=== PATIENT | female | born 1970 | race Caucasian/White ===

== ENCOUNTER → 2017-01-19 | Outpatient (CLI) | payer BC ==
[~2017-01-19] MED LIST: IUD'IUD VAGRING; NITR1CAP33 PO; OXYC-57 PO; SERT100T PO; SERT50TA PO
== END | disposition home or self-care (01) ==
LOC: C.PAPS 13:48
PROVIDERS: ATTEND Obstetrics & Gynecology
DX: Z01.419 Encounter for gynecological examination (general) (routine) without abnormal findings (principal)

== ENCOUNTER → 2017-01-19 | Outpatient (CLI) | payer BC ==
--- NOTE | 2017-01-19 13:35 | DIAGNOSTIC IMAGING REPORT ---
KUB CLINICAL HISTORY: N20.0 [id number] nephrocalcinosis COMPARISON STUDY: 01/30/2016 FINDINGS: 5 mm calcification immediately medial of the left renal shadow. A left ureteral pelvic junction calcification is not excluded. Bowel pattern is nonobstructive. There is no intrauterine device present within the soft tissue pelvis. IMPRESSION: Potential proximal left ureteral calculus measuring 5 mm. Electronically signed by: Toro Rowan M.D. 01/19/2017 1:34 PM Dictated Date/Time: 01/19/2017 1:33 PM
== END | disposition home or self-care (01) ==
LOC: C.RAD 13:14
PROVIDERS: ATTEND Urology
DX: N20.0 Calculus of kidney (principal)

== ENCOUNTER → 2017-03-11 | Outpatient (CLI) | payer BC ==
--- NOTE | 2017-03-11 15:02 | DIAGNOSTIC IMAGING REPORT ---
KUB HISTORY: 46 years-old Female N20.0 [id number] COMPARISON: 01/19/2017 TECHNIQUE: KUB radiograph FINDINGS: There is redemonstration of a 7 x 5 mm calcification within the region of the interpolar left kidney suggesting calculus. No calculi are seen along the course of either ureter. Bowel gas pattern is nonobstructive. There is moderate volume of formed stool within the colon. Intrauterine device is noted. No fracture. There are 6 non-rib lumbar-type vertebral segments incidentally noted. IMPRESSION: 1. 7 x 5 mm calcification of the left upper abdomen suggests renal calculus without evidence of ureteral calculi. 2. Nonobstructive bowel gas pattern. The above report was generated using voice recognition software. It may contain grammatical, syntax or spelling errors. Electronically signed by: Domenico Fall M.D. 03/11/2017 3:01 PM Dictated Date/Time: 03/11/2017 2:59 PM
== END | disposition home or self-care (01) ==
LOC: C.RAD 14:43
PROVIDERS: ATTEND Nurse Practitioner Family
DX: N20.0 Calculus of kidney (principal)

== ENCOUNTER → 2017-04-22 | Outpatient (CLI) | payer BC ==
[~2017-04-22] MED LIST changes: -SERT50TA PO
--- NOTE | 2017-04-22 11:36 | DIAGNOSTIC IMAGING REPORT ---
CHEST 2 VIEWS ROUTINE CLINICAL HISTORY: Nephrolithiasis. Preoperative evaluation. COMPARISON STUDY: Chest radiograph August 04, 2013. FINDINGS: Incidental note is made of an anterior cervical spine fusion. There is no pneumothorax or pleural effusion. Pulmonary vascularity is normal. No consolidation is identified. Cardiomediastinal silhouette is normal. Right apical opacity is unchanged and likely reflects scarring. IMPRESSION: No acute cardiopulmonary findings. Electronically signed by: Parminder Florence M.D. 04/22/2017 11:35 AM Dictated Date/Time: 04/22/2017 11:31 AM
[2017-04-22 12:13] LABS: BASO % 0.5 %; BASO ABS # 0.04 K/uL (0-0.2); COMPLETE YES; EOS % 7.6 %; HEMATOCRIT 39.2 % (37-47); IG% 1.2 %; LYMPH ABS # 1.76 K/uL (1.2-3.4); MEAN CELL VOLUME 89.9 fL (80-100); MEAN CORPUSCULAR HEMOGLOBIN 29.8 pg (25-34); MEAN CORPUSCULAR HGB CONC 33.2 g/dl (32-36); MEAN PLATELET VOLUME 10.9 fL (7.4-10.4); MONO % 8.9 %; NEUT % 57.8 %; PLATELET COUNT 439 K/uL (130-400); RED BLOOD COUNT 4.36 M/uL (4.2-5.4); WHITE BLOOD COUNT 7.34 K/uL (4.8-10.8)
[2017-04-22 12:27] LABS: BLOOD UREA NITROGEN 11 mg/dl (7-18); BUN/CREATININE RATIO 12.1 (10-20); CALCIUM 9.3 mg/dl (8.5-10.1); CARBON DIOXIDE 27 mmol/L (21-32); CHLORIDE 104 mmol/L (98-107); CREATININE 0.91 mg/dl (0.60-1.20); GLUCOSE 92 mg/dl (70-99); POTASSIUM 4.1 mmol/L (3.5-5.1); SODIUM 137 mmol/L (136-145)
== END | disposition home or self-care (01) ==
LOC: C.RAD 10:50
PROVIDERS: ATTEND Nurse Practitioner Family
DX: N20.0 Calculus of kidney (principal)

== ENCOUNTER → 2017-04-27 | Outpatient (CLI) | payer BC | END | disposition home or self-care (01) | LOC: C.LAB 17:19 | PROVIDERS: ATTEND Nurse Practitioner Family | DX: N39.0 Urinary tract infection, site not specified (principal) ==

== ENCOUNTER → 2017-05-06 | Outpatient (CLI) | payer BC ==
--- NOTE | 2017-05-06 16:30 | DIAGNOSTIC IMAGING REPORT ---
KUB HISTORY: NEPHROLITHIASIS COMPARISON: KUB 03/11/2017. FINDINGS: The bowel gas pattern is unremarkable. There are no dilated loops of small bowel to suggest an obstruction. No change in the 8 mm stone within the upper pole the left kidney. No right renal calculi. No ureteral or bladder calculi. An intrauterine device is unchanged in position. No pneumoperitoneum or pneumatosis. IMPRESSION: No change in the 8 mm stone within the left kidney. Electronically signed by: Maco Harris M.D. 05/06/2017 4:28 PM Dictated Date/Time: 05/06/2017 4:27 PM
== END | disposition home or self-care (01) ==
LOC: C.RAD 15:36
PROVIDERS: ATTEND Nurse Practitioner Family
DX: N20.0 Calculus of kidney (principal)

== ENCOUNTER → 2017-05-07 | Day surgery (SDC) | payer BC ==
[2017-04-07 11:07] VITALS: Ht 154.9 cm; Wt 68.2 kg
[~2017-05-07] VITALS: Ht 154.9 cm; Wt 68.2 kg
[~2017-05-07] MED LIST changes: +ATROPINE SULFATE 0.1 MG/ML 5ML SYR IV PRN; +CEFAZOLIN SOD 1 GM VIAL ONE; +DEXAMETHASONE SOD INJ 4 MG/ML VIAL ONE; +DiphenhydrAMINE HCL 50 MG/ML VIAL ONE; +EpHEDrine SULFATE INJ 50 MG/ML AMP IV PRN; +FENTANYL CITRATE INJ 50 MCG/1 ML 2 ML VIAL IV PRN; +FENTANYL CITRATE INJ 50 MCG/1 ML 2 ML VIAL ONE; +LIDOCAINE HCL 2% 2 ML VIAL (20MG/ML) ONE; +ONDANSETRON INJ 2 MG/ML 2 ML VIAL IV PRN; +ONDANSETRON INJ 2 MG/ML 2 ML VIAL ONE; +OXYCODONE/ACETAMINOPHEN 5-325 TAB PO PRN; +PROPOFOL IV EMULSION 10 MG/ML 20 ML VIAL IV ONE; +SODIUM CHLORIDE 0.9% INJ 10 ML VIAL ONE
[2017-05-07] MEDS: CIPROFLOXACIN 400MG / D5W IV SCH ×2 (13:04→13:19)
[2017-05-07] MEDS: LACTATED RINGER'S 1000ML 1,000 ML IV SCH ×2 (13:04→14:41)
--- NOTE | 2017-05-07 13:27 | History & Physical Bridge - SC ---
H&P Re-Evaluation Bridge Note: I have examined the patient, reviewed the History & Physical and in the interval since the performance of the History & Physical I have noted the following changes of clinical significance: No changes noted
--- NOTE | 2017-05-07 14:17 | [facility] Post Operative Brief Note ---
Immediate Operative Summary Operative Date May 07, 2017. Pre-Operative Diagnosis Left Renal Stone Post-Operative Diagnosis same Procedure(s) Performed Left Extracorporeal Shock Wave Lithotripsy Surgeon Dr. Jocelynn Gutierrez Intake Worker Surgeon(s) 0 Estimated Blood Loss 0 Findings stone appeared to fragment quickly ,Stopped after 1500 shocks as could not locate any further fragments Specimens none
--- NOTE | 2017-05-07 14:49 | Discharge Instructions-SurgCtr ---
Discharge Instructions Date of Service May 07, 2017. Visit Reason for Visit: Stones Discharge Discharge Diagnosis / Problem: post op l eswl Discharge Goals Goal(s): Decrease discomfort, Increase independence, Improve disease control Activity Recommendations Activity Limitations: per Instructions/Follow-up section (no driving on narcotics , strain urine) Anesthesia . Post Anesthesia Instructions: If you have had General Anesthesia or IV Sedation: * Do not drive today. * Resume driving when surgeon permits. * Do not make important decisions or sign legal documents today. * Call surgeon for: 1. Temperature elevations greater than 101 degrees F. 2. Uncontrollable pain. 3. Excessive bleeding. 4. Persistent nausea and vomiting. 5. Medication intolerance (nausea, vomiting or rash). * For nausea and vomiting use only clear liquids such as: tea, soda, bouillon until nausea subsides, then gradually increase diet as tolerated. * If you have any concerns or questions, call your surgeon's office. If physician is unavailable and it is an emergency, call 911 or go to the nearest emergency room. . Diet Recommendations Home Diet: resume previous diet Procedures Procedures Performed: Left Extracorporeal Shock Wave Lithotripsy Pending Studies Studies pending at discharge: no Medical Emergencies . Who to Call and When: Medical Emergencies: If at any time you feel your situation is an emergency, please call 911 immediately. . Non-Emergent Contact Non-Emergency issues call your: Urologist Call Non-Emergent contact if: temperature is above 101, your pain is not controlled . . "Provider Documentation" section prepared by Modesto Gutierrez. .
--- NOTE | 2017-05-07 14:50 | Anesthesia Progress Nt - [facility] ---
Anesthesia Post Op Note Date & Time May 07, 2017 at 14:50 Vital Signs Pain Intensity: 0 Vital Signs Past 12 Hours Date Time Temp Pulse Resp B/P (MAP) Pulse Ox O2 Delivery O2 Flow Rate FiO2 05/07/17 14:21 36.3 74 20 142/92 98 Room Air 05/07/17 12:04 36.6 73 18 130/77 (94) 98 Room Air Notes Mental Status: alert / awake / arousable, participated in evaluation Pt Amnestic to Procedure: Yes Nausea / Vomiting: adequately controlled Pain: adequately controlled Airway Patency, RR, SpO2: stable & adequate BP & HR: stable & adequate Hydration State: stable & adequate Anesthetic Complications: no major complications apparent
[2017-05-07 15:30] VITALS: TEMP 36.9
[2017-05-07 15:38] VITALS: BP 129/77; PULSE 80; O2SAT 97
--- NOTE | 2017-05-07 16:16 | OPERATIVE REPORT ---
DATE OF OPERATION: 05/07/2017 PREOPERATIVE DIAGNOSIS: Left ureteropelvic junction stone. POSTOPERATIVE DIAGNOSIS: Same. SURGEON: Dr. Gutierrez. ANESTHESIA: General. PROCEDURE PERFORMED: Left ESWL. DESCRIPTION OF THE PROCEDURE: The patient was taken to the operating room. She had been given preoperative antibiotics but had reactions so the Cipro was stopped. She was given Kefzol in the operating room. She had Venodyne stockings placed prior to her anesthesia, she was given general anesthesia and then the stone was localized from behind. She was given 1500 shocks, the stone completely disappeared. We lowered the balloon head to try to see if the stone had spread out; I could not find any fragments anywhere else to focus on so that we stopped procedure after 1500 shocks. The patient was then transferred back to the recovery room in stable condition. I attest to the content of the Intraoperative Record and any orders documented therein. Any exception s are noted below.
== END | disposition home or self-care (01) ==
LOC: X.SURG 11:42
PROVIDERS: ATTEND Urology
DX: N20.1 Calculus of ureter (principal); Z87.440 Personal history of urinary (tract) infections; F41.9 Anxiety disorder, unspecified; F32.9 Major depressive disorder, single episode, unspecified; Z87.891 Personal history of nicotine dependence; Z79.899 Other long term (current) drug therapy

== ENCOUNTER → 2017-05-12 | Outpatient (CLI) | payer BC ==
[~2017-05-12] MED LIST changes: -ATROPINE SULFATE 0.1 MG/ML 5ML SYR IV PRN; -CEFAZOLIN SOD 1 GM VIAL ONE; -DEXAMETHASONE SOD INJ 4 MG/ML VIAL ONE; -DiphenhydrAMINE HCL 50 MG/ML VIAL ONE; -EpHEDrine SULFATE INJ 50 MG/ML AMP IV PRN; -FENTANYL CITRATE INJ 50 MCG/1 ML 2 ML VIAL IV PRN; -FENTANYL CITRATE INJ 50 MCG/1 ML 2 ML VIAL ONE; -LIDOCAINE HCL 2% 2 ML VIAL (20MG/ML) ONE; -ONDANSETRON INJ 2 MG/ML 2 ML VIAL IV PRN; -ONDANSETRON INJ 2 MG/ML 2 ML VIAL ONE; -OXYCODONE/ACETAMINOPHEN 5-325 TAB PO PRN; -PROPOFOL IV EMULSION 10 MG/ML 20 ML VIAL IV ONE; -SODIUM CHLORIDE 0.9% INJ 10 ML VIAL ONE
== END | disposition home or self-care (01) ==
LOC: C.LAB 17:57
PROVIDERS: ATTEND Nurse Practitioner Adult Health
DX: N20.0 Calculus of kidney (principal); N39.0 Urinary tract infection, site not specified

== ENCOUNTER → 2017-05-19 | Outpatient (CLI) | payer BC ==
--- NOTE | 2017-05-19 18:00 | DIAGNOSTIC IMAGING REPORT ---
KUB CLINICAL HISTORY: Nephrolithiasis status post lithotripsy. FINDINGS: 2 AP supine abdominal radiographs are compared to study dated 05/06/2017 and correlated with abdominal CT dated 10/18/2014. There is a nonobstructed abdominal bowel gas pattern noting moderate colonic fecal retention. There is no radiographic evidence of nephrolithiasis on today's examination. The left proximal ureteral stone seen on 05/06/2017 has resolved. An intrauterine device is noted in the pelvis. The bony structures appear intact. IMPRESSION: There is no radiographic evidence of nephrolithiasis on today's examination. The left proximal ureteral stone seen on 05/06/2017 has resolved. Electronically signed by: Rsata Ovalle M.D. 05/19/2017 5:59 PM Dictated Date/Time: 05/19/2017 5:57 PM
== END | disposition home or self-care (01) ==
LOC: C.RAD 17:41
PROVIDERS: ATTEND Nurse Practitioner Family
DX: N20.0 Calculus of kidney (principal)

== ENCOUNTER → 2017-05-20 | Outpatient (CLI) | payer BC | END | disposition home or self-care (01) | LOC: C.LABSPEC 10:40 | PROVIDERS: ATTEND Nurse Practitioner Family | DX: N20.0 Calculus of kidney (principal) ==

== ENCOUNTER → 2017-07-16 | Outpatient (CLI) | payer BC ==
--- NOTE | 2017-07-16 09:27 | DIAGNOSTIC IMAGING REPORT ---
FUSION CT SINUSES W/O HISTORY: 46 years-old Female J32.9 Chronic sinusitis COMPARISON: Brain MRI 07/01/2017 TECHNIQUE: Multiple axial CT images of the paranasal sinuses were obtained without the use of IV contrast. Built In images were also submitted. A dose lowering technique was used consistent with the principals of LANCE. FINDINGS: Mastoid air cells and middle ear cavities are clear. There is mild mucoperiosteal thickening of the left greater than right maxillary sinuses. The frontal and sphenoid sinuses are clear. There is only minimal mucosal thickening involving a few anterior ethmoid air cells. No vijaya bullosa. Minimal rightward bowing and spurring of the nasal septum. The mj stephanie appears normal. Mild mucosal thickening is noted involving the ostiomeatal units, left greater than right without occlusion. Frontoethmoidal and sphenoethmoidal recesses are clear. Areas of minimal mucosal thickening also seen within the nasal turbinates. Probable bone island or osteoma of the left maxillary bone, 6 mm. No acute facial bone fracture or dislocation. Imaged soft tissues are unremarkable. Orbits appear symmetric. The imaged intracranial structures demonstrate no acute abnormality. IMPRESSION: 1. Only mild paranasal sinus disease as described above including mild mucosal thickening of the bilateral maxillary ostiomeatal units, left greater then right. 2. Minimal rightward deviation and spurring of the nasal septum. The above report was generated using voice recognition software. It may contain grammatical, syntax or spelling errors. Electronically signed by: Domenico Fall M.D. 07/16/2017 9:25 AM Dictated Date/Time: 07/16/2017 9:18 AM
== END | disposition home or self-care (01) ==
LOC: C.CTS 08:51
PROVIDERS: ATTEND Physician Assistant
DX: J32.9 Chronic sinusitis, unspecified (principal)

== ENCOUNTER → 2017-07-21 | Outpatient (CLI) | payer BC ==
[2017-07-21 10:59] LABS: THYROID STIMULATING HORMONE 1.32 uIu/ml (0.300-4.500)
== END | disposition home or self-care (01) ==
LOC: C.LAB1850 09:08
PROVIDERS: ATTEND Internal Medicine
DX: Z13.220 Encounter for screening for lipoid disorders (principal); F41.9 Anxiety disorder, unspecified

== ENCOUNTER → 2017-10-14 | Outpatient (CLI) | payer BC ==
[2017-10-14 14:39] LABS: BASO % 0.2 %; BASO ABS # 0.02 K/uL (0-0.2); EOS % 2.4 %; EOS ABS # 0.24 K/uL (0-0.5); HEMATOCRIT 39.2 % (37-47); HEMOGLOBIN 13.2 g/dL (12.0-16.0); IG# 0.06 K/uL (0.00-0.02); LYMPH % 24.7 %; LYMPH ABS # 2.42 K/uL (1.2-3.4); MEAN CELL VOLUME 88.7 fL (80-100); MEAN CORPUSCULAR HEMOGLOBIN 29.9 pg (25-34); MEAN CORPUSCULAR HGB CONC 33.7 g/dl (32-36); MEAN PLATELET VOLUME 10.4 fL (7.4-10.4); MONO % 6.7 %; MONO ABS # 0.66 K/uL (0.11-0.59); NEUT % 65.4 %; PLATELET COUNT 381 K/uL (130-400); RED CELL DISTRIBUTION WIDTH CV 13.5 % (11.5-14.5); RED CELL DISTRIBUTION WIDTH SD 44.1 fL (36.4-46.3)
[2017-10-14 15:26] LABS: ALBUMIN 3.6 gm/dl (3.4-5.0); ALT/SGPT 36 U/L (12-78); BLOOD UREA NITROGEN 12 mg/dl (7-18); CALCIUM 9.3 mg/dl (8.5-10.1); CARBON DIOXIDE 28 mmol/L (21-32); CREATININE 0.72 mg/dl (0.60-1.20); GLUCOSE 85 mg/dl (70-99); POTASSIUM 3.8 mmol/L (3.5-5.1); SODIUM 138 mmol/L (136-145)
[2017-10-14 15:37] LABS: ALKALINE PHOSPHATASE 120 U/L (45-117); AST/SGOT 20 U/L (15-37); TOTAL PROTEIN 7.1 gm/dl (6.4-8.2)
== END | disposition home or self-care (01) ==
LOC: C.LAB1850 13:47
PROVIDERS: ATTEND Internal Medicine
DX: R00.2 Palpitations (principal)

== ENCOUNTER → 2017-11-16 | Outpatient (CLI) | payer BC ==
[~2017-11-16] MED LIST changes: -NITR1CAP33 PO; -OXYC-57 PO
--- NOTE | 2017-11-17 07:51 | MAMMOGRAPHY REPORT ---
BILATERAL DIGITAL SCREENING MAMMOGRAM TOMOSYNTHESIS WITH CAD: 11/16/2017 CLINICAL HISTORY: Routine screening. Patient has no complaints. TECHNIQUE: Breast tomosynthesis in addition to standard 2D mammography was performed. Current study was also evaluated with a Computer Aided Detection (CAD) system. COMPARISON: Comparison is made to exams dated: 03/27/2016 mammogram, 08/09/2014 mammogram, 03/17/2013 ma mmogram, 03/16/2012 mammogram, 01/29/2011 mammogram, and 11/08/2009 mammogram - [facility]. BREAST COMPOSITION: The tissue of both breasts is extremely dense, which lowers the sensitivity of m ammography. FINDINGS: A new linear scar marker overlies the skin of the upper outer posterior right breast, denot ing the area of interval fibroadenoma excision. No new suspicious mass, architectural distortion or cluster of suspicious microcalcifications is seen. IMPRESSION: ACR BI-RADS CATEGORY 1: NEGATIVE There is no mammographic evidence of malignancy. A 1 year screening mammogram is recommended. The pa tient will receive written notification of the results. Approximately 10% of breast cancers are not detected with mammography. A negative mammographic report should not delay biopsy if a clinically suggestive mass is present. Shakira Collazo M.D. ay/:11/16/2017 16:02:01 Service Manager: Kelly INGRAM)(M), [facility] letter sent: Normal 1/2 BI-RADS Code: ACR BI-RADS Category 1: Negative
== END | disposition home or self-care (01) ==
LOC: C.MAMM 08:28
PROVIDERS: ATTEND Internal Medicine
DX: Z12.31 Encounter for screening mammogram for malignant neoplasm of breast (principal)

== ENCOUNTER 2018-03-02 05:55 | Observation (INO) | payer BC ==
[2018-01-31 13:38] VITALS: BMI 27.0
[2018-03-02] VITALS (15 sets, daily range): BP systolic 107–139; BP diastolic 52–80; PULSE 62–92; TEMP 36.4–37; O2SAT 93–99; Ht 154.9 cm; Wt 66.0 kg
[~2018-03-02] VITALS: Ht 154.9 cm; Wt 66.0 kg
[~2018-03-02 05:55] MED LIST changes: +PRED1SUS3 OPB
[2018-03-02] MEDS ORDERED: CEFAZOLIN 1000MG IV PUSH 7.5 ML IV SCH (06:00)
[2018-03-02] MEDS ORDERED: LACTATED RINGER'S 1000ML 1,000 ML IV SCH (06:00)
[2018-03-02] MEDS ORDERED: PRED1SUS3 OPL (06:20)
[2018-03-02] MEDS ORDERED: SODIUM CHLORIDE 0.9% PF 50 ML VIAL ONE (06:59)
[2018-03-02] MEDS ORDERED: BACITRACIN 50000 UNIT VIAL ONE (06:59)
--- NOTE | 2018-03-02 07:36 | History and Physical ---
History & Physical Date Mar 02, 2018. Chief Complaint Neck and arm pain History of Present Illness The patient is a 47 year old female with complaints of neck and arm pain Additional History Hepatic Disease: No Endocrine Disorder: No Kidney Disease: No Hypertension: No Heart Disease: No Bleeding Tendencies: No Infectious Diseases: No Allergies Coded Allergies: Ciprofloxacin (Verified Allergy, Unknown, RASH AND ITCHING WITH IV CIPRO, 03/02/18) Home Medications Scheduled Iud's (Paragard Intrauterine [employer]ist), 1 UNIT VAGRING CONTINOUS Prednisolone Acetate (Ophth) (Pred Forte 1% Oph), 1 DROPS OPL BID Sertraline Hcl (Zoloft), 100 MG PO QAM Physical Examination Skin: warm/dry, no rash Eyes: normal inspection, EOMI, sclerae normal ENT: normal ENT inspection, pharynx normal Head: normocephalic, atraumatic Neck: supple, no adenopathy, trachea midline Respiratory/Chest: lungs clear, normal breath sounds, no respiratory distress Cardiovascular: regular rate, rhythm, no edema, no murmur Abdomen / GI: normal bowel sounds, non tender Back: normal inspection Extremities: normal inspection, normal range of motion Neurologic/Psych: no motor/sensory deficits, alert, normal reflexes, oriented x 3 Diagnosis Cervical spinal stenosis with radiculopathy Plan of Treatment Removal of cervical plate C5-6 ACDF C6-7
[2018-03-02] MEDS ORDERED: ATROPINE SULFATE 0.1 MG/ML 5ML SYR IV PRN (07:45)
[2018-03-02] MEDS ORDERED: ONDANSETRON INJ 2 MG/ML 2 ML VIAL IV PRN (07:45)
[2018-03-02] MEDS ORDERED: HYDROmorphone INJ 1 MG/ML SYR IV PRN (07:45)
[2018-03-02] MEDS ORDERED: EpHEDrine SULFATE INJ 50 MG/ML AMP IV PRN (07:45)
[2018-03-02] MEDS ORDERED: PHENYLEPHRINE 100MCG/ML 5ML SYR IV PRN (07:45)
[2018-03-02] MEDS ORDERED: PROMETHAZINE HCL INJ 12.5 MG in SODIUM CHLORIDE 0.9% 50ML 50 ML IV PRN (07:45)
--- NOTE | 2018-03-02 08:59 | [facility] Operative Report ---
Operative Report Operative Date Mar 02, 2018. Pre-Operative Diagnosis Cervical spinal stenosis with radiculopathy Post-Operative Diagnosis Same Procedure(s) Performed 1. Removal of instrumentation C5-6. #2 expiration fusion C5-6. #3 anterior cervical discectomy bilateral foraminotomies C6-7. #4 anterior cervical arthrodesis C6-7. #5 placement of 7 mm cortical allograft filled with DBM C6-7. #6 application of hartley plate and screws across C6-7. Surgeon Dr. Luis Kimbrough Cremator Surgeon(s) Nani Cagle PA-C Estimated Blood Loss 10 Findings Spinal stenosis Specimens A. Explanted cervical spine hardware Description of Procedure Patient was met with preoperatively case discussed all questions addressed. After informed consent obtained patient was taken to the operative suite underwent intubation and placed in supine position injection table with head Z[place]ata headholder. All bony prominences well-padded eyes inspected to ensure no external pressure placed upon them. This point the anterior cervical spine was prepped and draped in the normal sterile fashion. The assistance of fluoroscopy identified the C6 vertebral body and a transverse incision was placed along the right anterior aspect of the cervical spine overlying this region. Sharp dissection with the assistance of bipolar performed down to and exposing the anterior cervical spine from C5-C7. I then remove the anterior cervical plate at C5-6. I explored the fusion mass noting it to be intact. Then performed a complete discectomy at C6-7 up to the uncovertebral joints bilaterally. [place] distracting pins were utilized to assist in visualization. Removed all posterior annular fibers longitudinal ligament bilateral foraminotomies performed. Endplates burred to subcortical bleeding bone and a 7 mm cortical allograft filled with DBM tapped in position. Distracting apparatus was removed all anterior osteophytes burred to a smooth cortical surface and a hartley plate and screws applied with the assistance of fluoroscopy. Incision was then copiously irrigated explored to ensure there is no damage to surrounding structures or remaining bleeding. 10 round SHAHEEN drain inserted. Incision was then closed with 2 Vicryl in a fashion of 4 Monocryl for fashion closure Steri-Strips sterile dressings placed. Patient will continue PACU stable condition. Please note Nani Cuenca was present throughout the entire procedure involved in patient positioning complex portions of the surgery and final skin closure. I attest to the content of the Intraoperative Record and any orders documented therein. Any exceptions are noted below.
[2018-03-02] MEDS ORDERED: ACETAMINOPHEN IV 1,000 MG in EMPTY BAG 0 ML IV PRN (09:00)
[2018-03-02] MEDS ORDERED: NALOXONE HCL 0.4 MG/1 ML VIAL/CARP IV PRN (09:00)
[2018-03-02] MEDS ORDERED: DiphenhydrAMINE HCL 50 MG/ML VIAL IV PRN (09:00)
[2018-03-02] MEDS ORDERED: LORAZEPAM INJ 0.5 MG in SYRINGE 0.75 ML IV PRN (09:00)
[2018-03-02] MEDS ORDERED: RACEPINEPHRINE 2.25% NEBU SOLN 0.5 ML VIAL INH PRN (09:00)
[2018-03-02] MEDS ORDERED: MAGNESIUM HYDROXIDE SUSP 30 ML UDC PO PRN (09:00)
[2018-03-02] MEDS ORDERED: DO NOT ADMINISTER FLU VACCINE PRN (09:00)
[2018-03-02] MEDS ORDERED: DO NOT ADMINISTER PNEUMOCOCCAL VACCINE PRN (09:00)
[2018-03-02] MEDS ORDERED: HYDROmorphone INJ 0.5 MG/0.5 ML SYR IV PRN (09:00)
[2018-03-02] MEDS ORDERED: DEXAMETHASONE INJ 8 MG in SYRINGE 0 ML IV PRN (09:00)
[2018-03-02] MEDS ORDERED: LORAZEPAM 0.5 MG TAB PO PRN (09:00)
--- NOTE | 2018-03-02 09:30 | DIAGNOSTIC IMAGING REPORT ---
INTRAOPERATIVE RADIOGRAPHS CLINICAL HISTORY: C6-C7 spinal fusion. Fluoroscopy time: 5 seconds. FINDINGS: 2 spot fluoroscopic views of the cervical spine are presented. There has been discectomy at C5-C6 and C6-C7 with anterior fusion at C6-C7. The orthopedic hardware appears intact. An endotracheal tube is in place. IMPRESSION: Intraoperative images from C6 -C7 spinal fusion as above. Electronically signed by: Rasta Ovalle M.D. 03/02/2018 9:29 AM Dictated Date/Time: 03/02/2018 9:24 AM
[2018-03-02] MEDS: FENTANYL CITRATE INJ 50 MCG/1 ML 2 ML VIAL IV PRN ×2 (09:36→09:43)
--- NOTE | 2018-03-02 10:21 | Anesthesiology Progress Note ---
Anesthesia Post Op Note Date & Time Mar 02, 2018 at 10:21 Vital Signs Pain Intensity: 3 Vital Signs Past 12 Hours Date Time Temp Pulse Resp B/P (MAP) Pulse Ox O2 Delivery O2 Flow Rate FiO2 03/02/18 10:10 36.6 85 16 136/70 98 Nasal Cannula 2 03/02/18 10:00 72 16 124/69 98 Nasal Cannula 2 03/02/18 09:50 67 16 134/69 97 Nasal Cannula 2 03/02/18 09:40 83 16 133/76 98 Nasal Cannula 2 03/02/18 09:30 79 16 155/94 98 Nasal Cannula 2 03/02/18 09:20 80 15 157/101 98 Nasal Cannula 2 03/02/18 09:14 36 81 16 170/97 98 Nasal Cannula 2 03/02/18 06:32 36.5 62 16 139/52 (81) 98 Room Air Notes Mental Status: alert / awake / arousable, participated in evaluation Pt Amnestic to Procedure: Yes Nausea / Vomiting: adequately controlled Pain: adequately controlled Airway Patency, RR, SpO2: stable & adequate BP & HR: stable & adequate Hydration State: stable & adequate Anesthetic Complications: no major complications apparent
[2018-03-02] MEDS ORDERED: NURSING VERBAL MED ORDER ONE (11:15)
[2018-03-02] MEDS ORDERED: IV FLUIDS COMPLETED PRN (11:30)
[2018-03-02] MEDS: PrednisoLONE ACET 1% OP SUSP 5 ML BTL OPL SCH ×2 (11:30→21:28)
[2018-03-02] MEDS ORDERED: SCOPOLAMINE 1.5 MG TDSY TD SCH (12:00)
[2018-03-02] MEDS: OXYCODONE HCL IR 5 MG TAB (IMMEDIATE RELEASE) PO PRN ×2 (12:31→23:13)
[2018-03-02] MEDS: CEFAZOLIN IV 1,000 MG in SYRINGE 0 ML IV SCH ×2 (15:35→23:13)
[2018-03-02] MEDS: CHECK SCOPOLAMINE PATCH PLACEMENT SCH ×2 (15:35→23:13)
[2018-03-02] MEDS: SODIUM CHLORIDE 0.9% 1000ML 1,000 ML IV SCH (15:36)
[2018-03-02] MEDS: ONDANSETRON INJ 2 MG/ML 2 ML VIAL IV PRN ×2 (18:11→23:50)
[2018-03-02] MEDS: DOCUSATE SODIUM 100 MG CAP PO SCH (21:28)
[2018-03-03] VITALS (9 sets, daily range): BP systolic 112–125; BP diastolic 70–77; PULSE 62–86; TEMP 36.7–36.9; O2SAT 95–99
[2018-03-03] MEDS: SODIUM CHLORIDE 0.9% 1000ML 1,000 ML IV SCH ×2 (03:33→12:30)
[2018-03-03] MEDS ORDERED: RXC5 PO (07:35)
--- NOTE | 2018-03-03 07:36 | Discharge Instructions ---
Discharge Instructions Date of Service Mar 03, 2018. Admission Reason for Admission: Discharge Discharge Diagnosis / Problem: cervical stenosis Discharge Goals Goal(s): Improve function Activity Recommendations Activity Limitations: per Instructions/Follow-up section . Instructions / Follow-Up Instructions / Follow-Up ACTIVITY RECOMMENDATIONS: SELF CARE INSTRUCTIONS AFTER CERVICAL FUSIONS 1. No smoking. Smoking drastically decreases the chance of a solid fusion. 2. No bending, lifting more than 5 pounds, or twisting (roll like a log when turning in bed). 3. You may shower 3 days after surgery. Thoroughly dry wound. Do not soak in the tub. 4. Cervical collar: Must be worn at all times including sleeping. You may remove the brace only to bath, eat and if you are sitting in a recliner. 5. Please walk as much as you can for exercise. Gradually increase the distance that you walk as your endurance increases. SPECIAL CARE INSTRUCTIONS: VERY IMPORTANT TO READ AND REVIEW A. Do not take any anti-inflammatory medications (i.e. Indocin, Advil, Aspirin, Naprosyn, Aleve, Motrin, etc.) as these may inhibit the chance of a solid fusion. Tylenol is okay to take. B. Your surgical incision has been closed with a cosmetic suture under the skin that will dissolve in about 6 weeks. In 14 days, you can use a pair of clean scissors and cut the suture that is left outside of the skin at the ends of your incision. C. Complications are uncommon, but please contact us if you have any signs or symptoms of: 1. wound infection (fever higher than 102.5 degrees F, redness, separation of wound, drainage, or increasing pain from the incision) 2. blood clots in legs (pain, swelling, redness and warmth in legs) 3. urinary tract infection (fever higher than 102.5 degrees, burning upon urination or increased frequency of urination) 4. nerve problems (inability to walk on your toes or heels, numbness, loss of bowel or bladder control) 5. any other symptoms that concern you. D. Please call the office at if you have any concerns or questions about your operation or recovery. MANAGING PAIN AFTER SPINAL SURGERY 1. Narcotic medication is intended for short-term use and will be provided for surgical pain. Surgical pain usually lasts for a period of 4-6 weeks. Narcotic medication includes Percocet, Vicodin, Darvocet, Tylenol #3 or Lortab. 2. Longer-term pain is more appropriately treated with non-narcotic medication such as Tylenol ES. 3. Muscle spasm is not appropriately treated with narcotics. Muscle relaxers such as Soma, Flexeril or Skelaxin can be used along with Tylenol ES. 4. Remember that we all live with some "aches and pains". This is not unusual or uncommon after an injury or as we get older. 5. We will provide appropriate medication within the normal guidelines of their prescribed use. We will also be very cautious and aware of potential abuse and extended duration of patients' medication needs. 6. Please allow 2-3 days to process refills. Prescriptions will not be mailed but must be picked up at the office. FOLLOW UP VISIT: Keep your scheduled follow-up appointment. Any questions, please call the office at . Current Hospital Diet Patient's current hospital diet: Clear Liquid Diet Discharge Diet Recommended Diet: Regular Diet Procedures Procedures Performed: C6-C7 Anterior Cervical Discectomy and Fusion; Removal of cervical plate C5-C6 Pending Studies Studies pending at discharge: no Medical Emergencies . Who to Call and When: Medical Emergencies: If at any time you feel your situation is an emergency, please call 911 immediately. . Non-Emergent Contact Non-Emergency issues call your: Primary Care Provider . "Provider Documentation" section prepared by Luis Kimbrough. .
[2018-03-03] MEDS ORDERED: HYDR-5688 PO (07:58)
[2018-03-03] MEDS: CHECK SCOPOLAMINE PATCH PLACEMENT SCH (08:00)
--- NOTE | 2018-03-03 08:13 | Discharge Summary ---
Orthopedic Discharge Summary Admission Date/Reason Mar 02, 2018 at 09:02 . Discharge Date/Disposition Mar 03, 2018 Home Diagnosis Principal Diagnosis: Cervical spinal stenosis Admission Physical Exam As per Admitting History & Physical. Hospital Course Patient underwent anterior cervical discectomy and fusion tolerated as well as taken with orthopedic for postoperative. Postop day #1 she was swallowing well no hoarseness arm symptoms improved. On examination she is good strength testing and was subsequently discharged home. Discharge orders and instructions can be found in the chart for further review. Discharge Instructions Please refer to the electronic Patient Visit Report (Discharge Instructions) for additional information.
[2018-03-03] MEDS: PrednisoLONE ACET 1% OP SUSP 5 ML BTL OPL SCH (08:31)
[2018-03-03] MEDS: DOCUSATE SODIUM 100 MG CAP PO SCH (08:32)
[2018-03-03] MEDS: CEFAZOLIN IV 1,000 MG in SYRINGE 0 ML IV SCH (08:32)
--- NOTE | 2018-03-03 08:57 | Anesthesiology Progress Note ---
Anesthesia Post Op Note Date & Time Mar 03, 2018 at 08:57 Vital Signs Pain Intensity: 0.0 Vital Signs Past 12 Hours Date Time Temp Pulse Resp B/P (MAP) Pulse Ox O2 Delivery O2 Flow Rate FiO2 03/03/18 07:30 36.8 83 18 123/77 95 Room Air 03/03/18 06:57 64 14 95 Room Air 03/03/18 05:31 36.9 67 18 118/75 97 Room Air 03/03/18 03:30 97 Nasal Cannula 1.0 Humidified Oxygen 03/03/18 03:30 36.8 83 17 114/75 97 Nasal Cannula 1.0 Humidified Oxygen 03/03/18 03:02 68 14 98 Nasal Cannula 1.0 03/03/18 01:30 36.7 86 14 112/71 (85) 99 Nasal Cannula 1.0 Humidified Oxygen 03/02/18 23:30 36.4 74 14 132/79 (96) 99 Nasal Cannula 1.0 Humidified Oxygen 03/02/18 23:30 36.6 66 18 127/76 98 Nasal Cannula 1.0 Humidified Oxygen 03/02/18 23:08 83 14 98 Nasal Cannula 1.0 03/02/18 21:30 36.6 82 16 127/78 97 Nasal Cannula 1.0 Humidified Oxygen Notes Mental Status: alert / awake / arousable, participated in evaluation Pt Amnestic to Procedure: Yes Nausea / Vomiting: adequately controlled Pain: adequately controlled Airway Patency, RR, SpO2: stable & adequate BP & HR: stable & adequate Hydration State: stable & adequate Anesthetic Complications: no major complications apparent
[2018-03-03] MEDS ORDERED: SERTRALINE HCL 100 MG TAB PO SCH (09:00)
[2018-03-04] MEDS ORDERED: BISACODYL 10 MG SUPP PR PRN (06:00)
[2018-03-04] MEDS ORDERED: BISACODYL 5 MG TABEC PO PRN (06:00)
[2018-03-04] MEDS ORDERED: POLYETHYLENE (MIRALAX) 17 GM PACK PO SCH (09:00)
== END 2018-03-03 13:29 | disposition home or self-care (01) ==
LOC: C.ACU 05:55 → C.3E 09:02 → ENRESERV 09:58
PROVIDERS: ADMIT Orthopaedic Surgery Orthopaedic Surgery of the Spine; ATTEND Orthopaedic Surgery Orthopaedic Surgery of the Spine
DX: M48.02 Spinal stenosis, cervical region (principal); M54.12 Radiculopathy, cervical region; F32.9 Major depressive disorder, single episode, unspecified; Z87.891 Personal history of nicotine dependence; M19.90 Unspecified osteoarthritis, unspecified site; Z88.1 Allergy status to other antibiotic agents